=== PATIENT | male | born 1980 | race Caucasian/White ===

== ENCOUNTER 2022-10-19 21:04 | Emergency (ER) | payer MEDICAID ==
[~2022-10-19] VITALS: Ht 170.2 cm; Wt 72.0 kg
[2022-10-19 21:43] VITALS: BP 103/71; PULSE 91; RESP 18; TEMP 98.4; O2SAT 99
== END 2022-10-20 00:32 | disposition left against medical advice (07) ==
LOC: ER 21:04
DX: Z53.21 Procedure and treatment not carried out due to patient leaving prior to being seen by health care provider (principal)
CPT/HCPCS: 99281

== ENCOUNTER 2024-03-06 14:40 | Emergency (ER) | payer MEDICAID, OTHER ==
[~2024-03-06] VITALS: Ht 172.7 cm; Wt 91.0 kg
[2024-03-06 14:46] VITALS: PULSE 110
[2024-03-06 14:48] VITALS: BP 117/71; RESP 18; TEMP 98.1; O2SAT 95
[2024-03-06] MEDS ORDERED: BUPR1FIL3 SL ×4 (15:04→17:58)
== END 2024-03-06 15:22 | disposition home or self-care (01) ==
LOC: ER 14:40
DX: F11.23 Opioid dependence with withdrawal (principal); Z76.0 Encounter for issue of repeat prescription
CPT/HCPCS: 99281

== ENCOUNTER 2024-03-11 14:31 | Emergency (ER) | payer MEDICAID ==
[~2024-03-11] VITALS: Ht 170.2 cm; Wt 82.0 kg
[~2024-03-11 14:31] MED LIST: BUPR1FIL3 SL
[2024-03-11 14:34] VITALS: O2SAT 99
[2024-03-11 14:36] VITALS: BP 124/53; PULSE 91; RESP 16; TEMP 98.7; O2SAT 97
[2024-03-12] MEDS ORDERED: BUPR1FIL3 SL ×2 (19:29→20:11)
== END 2024-03-11 18:33 | disposition left against medical advice (07) ==
LOC: ER 14:31
DX: Z76.0 Encounter for issue of repeat prescription (principal); Z53.21 Procedure and treatment not carried out due to patient leaving prior to being seen by health care provider

== ENCOUNTER 2024-03-12 18:53 | Emergency (ER) | payer MEDICAID ==
[~2024-03-12] VITALS: Ht 170.2 cm; Wt 86.2 kg
[2024-03-12 19:04] VITALS: BP 123/54; PULSE 97; RESP 16; TEMP 98.4; O2SAT 100
[2024-03-12] MEDS ORDERED: BUPR1FIL3 SL ×2 (19:29→20:11)
== END 2024-03-12 21:02 | disposition home or self-care (01) ==
LOC: ER 18:53
DX: F11.23 Opioid dependence with withdrawal (principal); F17.200 Nicotine dependence, unspecified, uncomplicated; Z76.0 Encounter for issue of repeat prescription; Z98.890 Other specified postprocedural states
CPT/HCPCS: 99281